=== PATIENT | male | born 1945 | race Two or more races ===

== ENCOUNTER 2017-07-03 14:15 | Emergency (ER) | payer OTHER, MEDICAID ==
[~2017-07-03] VITALS: Ht 177.8 cm; Wt 74.8 kg
[2017-07-03] MEDS ORDERED: cefTRIAXone W LIDOCAINE 1 GM IM IM ONE (17:30)
[2017-07-03] MEDS ORDERED: LIDOCAINE 1% (LOCAL ANESTH.) PF 5ml SDV ONE (17:55)
[2017-07-03] MEDS ORDERED: cefTRIAXone SOD 1,000 MG VL ONE (17:55)
[2017-07-03 18:19] VITALS: BP 142/65
== END 2017-07-03 18:23 | disposition home or self-care (01) ==
LOC: ER 14:15
DX: L03.115 Cellulitis of right lower limb (principal); I10 Essential (primary) hypertension
CPT/HCPCS: 73700; 96372; 99284; J0696